=== PATIENT | female | born 1955 | race Caucasian/White ===

== ENCOUNTER 2017-07-01 09:00 | Outpatient (RCR) | payer MEDICARE, BC ==
[~2017-07-01] VITALS: Ht 163.8 cm; Wt 72.5 kg
[~2017-07-01 09:00] MED LIST: ACETAMINOPHEN 500 MG TAB PO PRN; ALEN70TA43 PO; ALP25 PO; ALPR-429 PO; ASPI-1471 PO; ASPI81TA94 PO; AVONEX IM; Aspirin PO; DEXTROSE 5%(*) 100 ML BAG 100 ML IVPB PRN; DIME240C2 PO; ESTR-25 PO; ESTR0.62 PO; ESZO2TAB30 PO; FLU10 PO; FLUO-201 PO; FLUT16SP19 NS; FLUT16SP20 NS; FLUT50DI3 IH; HYDR-4225 PO; HYDROCORTISONE 100 MG/2 ML IVP PRN; Hydroxyzine Hcl PO; KET10 PO; LIDOCAINE/SOD BICARB 8.4% SYR ID PRN; MINO50CA4 PO; MINO50TA7 PO; MONT10TA PO; NS(*) 0.9% 100 ML BAG 100 ML IVPB PRN; OMEG300C PO; PER PO; PNEI IJ; PNEU0.5D3 IM; RANI-318 PO; RANI150C17 PO; SIMV10TA98 PO; TOLT1TAB13 PO; TOLT2CAP7 PO; TRAM-420 PO; TRAZ-156 PO; VEN375 PO; VENL225T5 PO; VENL75CA58 PO; VITAMIN D; VITAMIN E; ZOLP-350 PO; ZOLP-360 PO; calicum; diphenhydrAMINE 25 MG CAP PO PRN; diphenhydrAMINE 50 MG/ML VIAL IVP PRN; glucosamine; turmeric
[2017-07-01 09:16] VITALS: BP 138/85
[2017-07-01 09:37] LABS: PLATELET COUNT, AUTOMATED 237 K/uL (150-450)
[2017-07-01] MEDS ORDERED: RITUXIMAB IV ONE (09:40)
[2017-07-01] MEDS ORDERED: NS 0.9% IV ONE (09:40)
[2017-07-01] MEDS ORDERED: HYDROCORTISONE SODIUM SUCCINATE IVP PRN (09:50)
[2017-07-01 12:47] VITALS: BP 137/90
== END 2017-07-16 10:11 | disposition home or self-care (01) ==
LOC: SPU 09:00
PROVIDERS: ATTEND Psychiatry & Neurology Neurology
DX: G35 Multiple sclerosis (principal); Z79.899 Other long term (current) drug therapy
CPT/HCPCS: 85025; 88184; 88185; 96375; 96413; 96415; A9270; J1720; J7040; J9310; Q0163

== ENCOUNTER 2018-01-06 09:03 | Outpatient (RCR) | payer MEDICARE, BC ==
[~2018-01-06 09:03] MED LIST changes: -ACETAMINOPHEN 500 MG TAB PO PRN; -HYDROCORTISONE 100 MG/2 ML IVP PRN; -TRAZ-156 PO; +TRAZ50TA34 PO; -diphenhydrAMINE 25 MG CAP PO PRN; -diphenhydrAMINE 50 MG/ML VIAL IVP PRN
[2018-01-06 11:39] VITALS: BP 139/87
[2018-01-06] MEDS ORDERED: ACETAMINOPHEN 500 MG TAB PO PRN (11:50)
[2018-01-06] MEDS ORDERED: diphenhydrAMINE 25 MG CAP PO PRN (11:50)
[2018-01-06] MEDS ORDERED: methylPREDNIS SUCC 125 MG/2ML IVP PRN (11:50)
[2018-01-06 12:08] LABS: PLATELET COUNT, AUTOMATED 222 K/uL (150-450)
[2018-01-06] MEDS ORDERED: RITUXIMAB IV ONE (12:20)
[2018-01-06] MEDS ORDERED: NS 0.9% IV ONE (12:20)
[2018-01-06 16:05] VITALS: BP 125/82
== END 2018-03-25 08:14 | disposition home or self-care (01) ==
LOC: SPU 09:03
PROVIDERS: ATTEND Psychiatry & Neurology Neurology
DX: G35 Multiple sclerosis (principal); Z79.899 Other long term (current) drug therapy; F09 Unspecified mental disorder due to known physiological condition; R53.82 Chronic fatigue, unspecified; R20.2 Paresthesia of skin
CPT/HCPCS: 85025; 88184; 88185; 96375; 96413; 96415; A9270; J2930; J7040; J7050; J9310; Q0163; 82040; 82247; 82310; 82374; 82435; 82565; 82947; 84075; 84132; 84155; 84295; 84450; 84460; 84520

== ENCOUNTER → 2018-04-08 | Outpatient (CLI) | payer MEDICARE, BC ==
[~2018-04-08] MED LIST changes: -DEXTROSE 5%(*) 100 ML BAG 100 ML IVPB PRN; -LIDOCAINE/SOD BICARB 8.4% SYR ID PRN; -NS(*) 0.9% 100 ML BAG 100 ML IVPB PRN
--- NOTE | 2018-04-09 10:16 | RADIOLOGY IMAGING REPORT ---
FACILITY: [facility] PATIENT NAME: NANCY DU : [id number] MR: [id number] V: [id number] EXAM DATE: [id number] ORDERING PHYSICIAN: TANVI MANUEL TECHNOLOGIST: Sondra Ryan PROCEDURE:BILATERAL DIGITAL SCREENING MAMMOGRAM WITH CAD ASSISTED INTERPRETATION & 3D TOMOSYNTHESIS COMPARISON:04/03/17 & priors sto 03/02/12 INDICATIONS:SCREENING FINDINGS: The breasts have scattered fibroglandular parenchymal densities. There are no mammographic findings concerning for malignancy. No significant interval change. DIAGNOSTIC CATEGORY 1--NEGATIVE. RECOMMENDATIONS: ROUTINE MAMMOGRAM AND CLINICAL EVALUATION IN 1 YEAR. IMPRESSION: BIRADS 1: Negative. Dictated by: Alex Waller on 04/09/2018 at 8:58 Transcribed by: LUIS on 04/09/2018 at 9:54 Approved by: Alex Waller on 04/09/2018 at 10:15 [facility]
== END ==
LOC: MAMO 01:01
PROVIDERS: ATTEND Nurse Practitioner Family
DX: Z12.31 Encounter for screening mammogram for malignant neoplasm of breast (principal)
CPT/HCPCS: 77063; 77067

== ENCOUNTER → 2018-06-04 | Outpatient (CLI) | payer MEDICARE, BC ==
--- NOTE | 2018-06-04 12:20 | RADIOLOGY IMAGING REPORT ---
FACILITY: [facility] [place] PATIENT NAME: Chuck Duncan : 1955 MR: [id number] V: [id number] EXAM DATE: ORDERING PHYSICIAN: TANVI MANUEL TECHNOLOGIST: Location: [facility] Patient: Chuck Duncan : 1955 Visit/Account:[id number] Date of Sevice: 06/04/2018 BONE DENSITY DEXA Scan Clinical history: Osteopenia. Comparison: DEXA scan from 03/27/2016. LUMBAR SPINE: The bone mineral density (BMD) measured from L1-L4 correlates with a Z-score -1.3 and a T-score of - 2.8 which is osteoporosis as defined by the World Health Organization. The corresponding risk of fra cture in the lumbar spine is increased 7 times compared with a young adult reference population. Thi s value has improved by 1.2 % since the prior study. More than 5% change is considered significant. HIP: Bone mineral density (BMD) measured in the Left total hip region correlates with a Z-score -1.5 and a T-score of -2.5 which is osteoporosis as defined by the World Health Organization. The correspondin g risk of fracture in the hip is increased 6 times compared with a young adult reference population. This value has improved by 12.9 % since the prior study. More than 5% change is considered significa nt. Bone mineral density (BMD) measured in the Femoral Neck region measures 0.683 g/cm2. T score -2.6. Osteoporosis. Fracture risk increased between 6-7 times. IMPRESSION: 1. Lumbar spine: Osteoporosis. There has been slight improvement in the bone mineral density since the previous exam. 2. Left Total Hip: Osteoporosis. There has been significant improvement in the bone mineral density since the previous exam. 3. Femoral Neck: Bone Mineral Density is 0.683 g/cm2. Osteoporosis The next DEXA scan of this patient should include the following sites: L1-L4 and the left hip. FRAX? WHO Fracture Risk Assessment Tool link: <http://www.shef.ac.uk/FRAX/tool.jsp?locationValue=9> PLEASE NOTE: 1) The World Health Organization defines low BMD as follows: T-score Normal > -1 Osteopenia < -1 and > -2.5 Osteoporosis < -2.5 without fractures Established osteoporosis < -2.5 with fractures 2) In general, you may wish to consider: Diagnosis Treatment Follow-up DEXA Normal BMD Prevention 2-3 years Osteopenia Prevention/therapy 1-2 years Osteoporosis Therapy Yearly 3) Fracture risk estimated from the T-score is more accurate for vertebral fractures (often spontane ous) than for hip fractures. Report Dictated By: Roberto Carlos Douglas MD at 06/04/2018 12:15 PM Report E-Signed By: Roberto Carlos Douglas MD at 06/04/2018 12:17 PM WSN:MYRNA
== END ==
LOC: RAD 07:02
PROVIDERS: ATTEND Nurse Practitioner Family
DX: M81.0 Age-related osteoporosis without current pathological fracture (principal); N95.9 Unspecified menopausal and perimenopausal disorder
CPT/HCPCS: 77080

== ENCOUNTER 2018-07-03 07:12 | Outpatient (RCR) | payer MEDICARE, BC ==
[~2018-07-03 07:12] MED LIST changes: +DEXTROSE 5%(*) 100 ML BAG 100 ML IVPB PRN; +LIDOCAINE/SOD BICARB 8.4% SYR ID PRN; +NS(*) 0.9% 100 ML BAG 100 ML IVPB PRN
[2018-07-03 09:14] VITALS: BP 135/95
[2018-07-03] MEDS ORDERED: methylPREDNIS SUCC 125 MG/2ML IVP PRN (09:40)
[2018-07-03] MEDS ORDERED: ACETAMINOPHEN 500 MG TAB PO PRN (09:40)
[2018-07-03] MEDS ORDERED: diphenhydrAMINE 25 MG CAP PO PRN (09:40)
[2018-07-03] MEDS ORDERED: NS 0.9% IV ONE (10:00)
[2018-07-03] MEDS ORDERED: RITUXIMAB IV ONE (10:00)
[2018-07-03 13:35] VITALS: BP 125/85
== END 2018-07-13 12:20 | disposition home or self-care (01) ==
LOC: SPU 07:12
PROVIDERS: ATTEND Psychiatry & Neurology Neurology
DX: G35 Multiple sclerosis (principal); Z79.899 Other long term (current) drug therapy; F09 Unspecified mental disorder due to known physiological condition; R53.82 Chronic fatigue, unspecified; R20.2 Paresthesia of skin
CPT/HCPCS: 96367; 96413; 96415; A9270; J2930; J7040; J7050; J9312; Q0163